=== PATIENT | female | born 1955 | race Caucasian/White ===

== ENCOUNTER → 2017-12-03 20:37 | Outpatient (CLI) | payer MEDICARE, BC, SELFPAY | PROVIDERS: PCP Internal Medicine Cardiovascular Disease; Visit Provider Internal Medicine Cardiovascular Disease | DX: G47.33 Obstructive sleep apnea (adult) (pediatric) (principal); G47.30 Sleep apnea, unspecified; R06.83 Snoring; I10 Essential (primary) hypertension | CPT/HCPCS: 95810 ==

== ENCOUNTER → 2018-12-14 15:04 | Outpatient (CLI) | payer MEDICARE, BC, SELFPAY ==
--- NOTE | 2018-12-14 15:08 | CA_ITS ---
PROCEDURE: 2-D M-mode and color Doppler study INDICATIONS FOR THE TEST: Chest pain COPD Heart Murmur Tobacco Smoking+ Palpitations+ Fatigue Syncope Edema Hypertension+Diabetes Mellitus Rheumatic Fever SOB LUNA Obesity Hyperlipidemia+ Family History HD Additional History cad, vtach PATIENT INFORMATION HEIGHT: 67 WEIGHT:151 GENDER: Female B/P:116/76 2-D/M-MODE INTERPRETATION: 2-D MEASUREMENTS OBSERVED VALUES IN CMS Right Ventricular Dimension (RVDd) 2.3 Interventricular Septum (Thickness)(IVsd) 1.2 Left Ventricular Internal Dimensions(LVIDd) 5.2 Left Ventricular Posterior Wall (Thickness)(LVPWd) 0.9 Aortic Root 2.2 Aortic Cusp Separation 1.9 Left Atrial Dimensions (LAD) 3.2 2D 1. Left atrium is mildly enlarged, left ventricle is normal size, mild concentric left ventricular hypertrophy, visually estimated ejection fraction 55% with no regional wall motion abnormality. 2. The right atrium and right ventricle are normal size and contractility. 3. The aortic valve is minimally thickened and calcified, leaflet continue to display mobility. 4. The mitral and tricuspid valve are grossly normal. 5. No significant pericardial effusion noted 6. The pulmonic valve is poorly visualized. DOPPLER INTERROGATION: Doppler interrogation of the aortic, mitral and tricuspid valvular presence of mild aortic, mild mitral and tricuspid regurgitation, tricuspid regurgitation jet velocity is inadequate for calculation of the right ventricular systolic pressure, grade 1 diastolic dysfunction seen with tissue Doppler evidence of raised left atrial pressure. CONCLUSION: 1. Mildly enlarged left atrium, normal left ventricular size, mild concentric left ventricular hypertrophy, visually estimated ejection fraction 55% with no regional wall motion abnormality, grade 1 diastolic dysfunction seen with tissue Doppler evidence of raised left atrial pressure. 2. Mild aortic, mild mitral and tricuspid regurgitation 3. No significant pericardial effusion noted.
== END ==
PROVIDERS: PCP Family Medicine; Visit Provider Internal Medicine Cardiovascular Disease
DX: I47.2 Ventricular tachycardia (principal)
CPT/HCPCS: 93306

== ENCOUNTER → 2019-01-12 09:06 | Outpatient (CLI) | payer MEDICARE, BC, SELFPAY ==
--- NOTE | 2019-01-12 09:18 | CT_ITS ---
CT angio LE INDICATION: Claudication, Leg pain while walking, ITS.REASON: claudication ORDERING PHYSICIAN: Dc Van MD PATIENT AGE: 63 years COMPARISON: None TECHNIQUE: Axial images are obtained following the bolus administration of 120 mL of Optiray 350 contrast. Sagittal and coronal reformatted images are reviewed as well. All CT scans at the facility use one or more dose reduction, viz: automated exposure control, ma/kV adjustment per patient size (including targeted exams where dose is matched to indication, i.e. head), or iterative reconstruction technique. FINDINGS: Angiographic findings: There is scattered calcific atheromatous plaque present within the abdominal aorta with no significant narrowing. No aortic aneurysm. The celiac and SMA have an unremarkable appearance. The TRICE also has an unremarkable appearance. There are 2 left renal arteries both of which are unremarkable. The right renal artery also has an unremarkable appearance bifurcating early There is mild narrowing of the proximal aspect of the both common iliac arteries of 20%. External iliac arteries have an unremarkable appearance. Right lower extremity runoff: Scattered atheromatous plaque within the common femoral and SFA with mild eccentric fibrocalcific plaque at the distal SFA with 25-30% stenosis.. Mild atheromatous plaque of the popliteal artery with 20% stenosis. There is three-vessel runoff to the ankle on the right. Left lower extremity runoff: Mild scattered atheromatous plaque. Mild stenosis at the common femoral artery of 10% at approximately 10:15 percent stenosis of the distal SFA. Scattered plaque noted within the runoff vessels in the calf. A small focal calcific plaque is present in the proximal aspect of the posterior tibial artery and may be causing some high-grade stenosis difficult to evaluate with this small vessel. Pertinent nonangiographic findings: There is a 13 mm left adrenal nodule is indeterminate showing some enhancement.. A cutaneous increased density is present along the abdomen anteriorly may be due to recent injection. Prior hysterectomy and cholecystectomy. Mild degenerative disc disease with minimal anterolisthesis of L4 on L5 There are loose intra-articular bodies in the popliteal region of the left knee with mild osteoarthritic changes of the left knee. IMPRESSION: 1. Scattered atheromatous changes as detailed above. No significant stenotic lesions evident of the aorta, iliac vessels, femoral arteries or superficial femoral artery or popliteal artery. 2. Small focal calcific plaque is present in the proximal left posterior tibial artery and may be causing high-grade stenosis difficult to evaluated due to the small size vessel. 3. Indeterminate 13 mm left adrenal nodule. Consider follow-up CT abdomen without contrast with adrenal protocol for further characterization 4. Osteoarthritis of the left knee with loose intra-articular bodies
[2019-01-12 09:33] LABS: Blood Urea Nitrogen 23 mg/dL (7-18); Creatinine,Serum 1.04 mg/dL (0.55-1.02); Estimated Glomerular Filt Rate 54 ml/min (>60); GFR (African American) 65 ML/MIN (>60)
== END ==
PROVIDERS: Visit Provider Internal Medicine Cardiovascular Disease
DX: I70.213 Atherosclerosis of native arteries of extremities with intermittent claudication, bilateral legs; E78.2 Mixed hyperlipidemia; I11.9 Hypertensive heart disease without heart failure; I25.10 Atherosclerotic heart disease of native coronary artery without angina pectoris; R00.2 Palpitations; R25.2 Cramp and spasm; F17.200 Nicotine dependence, unspecified, uncomplicated
CPT/HCPCS: 36415; 73701; 82565; 84520; Q9967

== ENCOUNTER → 2019-06-18 11:54 | Outpatient (CLI) | payer MEDICARE, BC, SELFPAY ==
[2019-06-18 13:13] LABS: Anion Gap 13.8 mEq/L (5-15); Blood Urea Nitrogen 21 mg/dL (7-18); Carbon Dioxide 27 mmol/L (21.0-32.0); Chloride 102 mmol/L (98-107); Creatinine,Serum 1.35 mg/dL (0.55-1.02); Estimated Glomerular Filt Rate 40 ml/min (>60); GFR (African American) 48 ML/MIN (>60); Glucose 92 mg/dL (74-106); Potassium 4.8 mmoL/L (3.5-5.1); Sodium 138 mmol/L (136-145)
== END ==
PROVIDERS: Visit Provider Internal Medicine Cardiovascular Disease
DX: R06.00 Dyspnea, unspecified; E78.5 Hyperlipidemia, unspecified; I11.9 Hypertensive heart disease without heart failure; I20.9 Angina pectoris, unspecified; F17.200 Nicotine dependence, unspecified, uncomplicated
CPT/HCPCS: 36415; 80048; 83880

== ENCOUNTER → 2019-06-24 06:12 | Outpatient (CLI) | payer MEDICARE, BC, SELFPAY ==
--- NOTE | 2019-06-24 | CA_ITS ---
APPROVED REPORT Exam: Pharmacologic Technologist: nicanor cortez, Ht: 5 ft 7 in Wt: 150 lbs BSA: 1.79 m2 HR: 64 bpm BP: 128/75 mmHg Rhythm: NSR,LOW VOLTAGE QRS Indications: CP Medical History Medical History: HTN, Hyperlipidemia, Diabetic ??? Noninsulin, Smoking Medications: Lisinopril,,,,, Lorazepam,,,,, Metoprolol,,,,, Asa,,,,, Metformin,,,,, Trazadone,,,,, Gabapentin,,,,, Prilosec,,,,, Lasix,,,,, Zoloft,,,,, Zanaflex,,,,, OxYCODONE,,,,, Allergies: NKA Cardiac Risk Factors: HTN, Hyperlipidemia, Diabetes (non-insulin), FHX of CAD, Smoking Stress Test Details Test: LEXISCAN HR Resting HR: 66 bpm Max Heart Rate (APMHR): 158 bpm Max HR Achieved: 91 bpm Target HR (85% APMHR): 134 bpm % of APMHR: 57 Recovery HR: 82 bpm BP Resting BP: 128.0/75.0 mmHg Max BP: 129.0/72.0 mmHg Recovery BP: 136.0/73.0 mmHg ECG Resting ECG: NSR LOW VOLTAGE QRS Clinical Exercise duration: 04:08 min Highest Stage Achieved: Exercise capacity: 1.0 METs Stress ECG Conclusion DURING INFUSION OF LEXISCAN PATIENT HAD MILD-MODERATE CHEST TIGHTNESS,SOA,NAUSEA AND MALAISE. NO ARRHYTHMIAS/ECTOPY. NS ST-T CHANGES. UNREMARKABLE LEXISCAN STRESS. MYOVIEW IMAGES REPORTED SEPARATELY Electronically signed by : Dc Van, 06/24/2019 12:15:20
--- NOTE | 2019-06-24 06:14 | CA_ITS ---
APPROVED REPORT EXAM: Comprehensive 2D, Doppler, and color-flow Echocardiogram Campus Monitor: Gaby Chilel RDCS Ht: 5 ft 7 in Wt: 150lbs BSA: 1.79 BP: 105/62 mmHg Indications: Chest Pain, Atrial Fibrillation, Diabetes, Palpitations, CAD, Hyperlipidemia, Hypertension/HDD 2D Dimensions LVOT 1.70 cm (M/F) 1.5-2.5 M-Mode Dimensions RVDd 2.60 cm (0.9-2.6) LA Diam 3.10 cm (1.9-4.0) LVDd 5.50 cm (3.5-5.7) Ao Diam 3.00 cm (2.0-3.7) LVDs 4.30 cm (3.5-5.7) AV Cusp 1.50 cm (1.5-2.6) IVSd 0.70 cm (0.6-1.1) PWd 0.80 cm (0.6-1.1) EF (Teich) 43.50% FS 21.80% EDV (Teich) 147.00 mL ESV (Teich) 83.10 mL LV Diastology E/A Ratio 0.9 MED E' 6.63 (< 7 cm/sec) E'/MED E' Ratio 10.70 (>14) LAT E' 6.53 (<10 cm/sec) E/LAT E' Ratio 10.90 (>14) Mitral Valve MV E Max Fuentes. 71.10 (40-130 cm/s) MV A Velocity 79.50 (40-130 cm/s) E/A Ratio 0.90 Left Ventricle Left atrium is mildly enlarged, left ventricle is normal size, mild concentric left ventricular hypertrophy, visually estimated ejection fraction 55% with no regional wall motion abnormality, grade 1 diastolic dysfunction seen without tissue Doppler evidence of raise left atrial pressure. Right Ventricle Right atrium and right ventricular normal size and contractility. Aortic Valve Aortic valve is minimally thickened and calcified leaflet continue to display good mobility, there is no aortic stenosis aortic insufficiency. Mitral Valve Mitral valve leaflets are minimally thickened, there is mild mitral regurgitation. Tricuspid Valve Tricuspid valve is grossly normal, there is mild tricuspid regurgitation, tricuspid regurgitation jet velocity is inadequate for calculation of the right ventricular systolic pressure. Pulmonic Valve Pulmonic valve is poorly visualized. Great Vessels Aortic root is normal size. Pericardium No significant pericardial effusion noted. Conclusion 1. Mild biatrial enlargement, normal left ventricular size, mild concentric left ventricular hypertrophy, visually estimated ejection fraction 55% with no regional wall motion abnormality, grade 1 diastolic dysfunction seen without tissue Doppler evidence of raise left atrial pressure. 2. Mildly enlarged right ventricle with normal contractility. 3. Mild mitral and tricuspid regurgitation. 4. No significant pericardial effusion noted. Electronically signed by : Dc Van, 06/25/2019 11:48:08
--- NOTE | 2019-06-24 06:37 | NM_ITS ---
APPROVED REPORT Exam: Nuclear Stress Test Indication: chest pain, fatigue Patient Location: Outpatient Stress Tech: Milena Carrero [place] Tech:Chhaya Castellano CRYSTAL RT(R)(N) Ht: 5 ft 7 in Wt: 150 lbs Bra Size: c HR: 64 bpm BP: 128/75 mmHg BSA: 1.79 m2 BMI: 23.4 History: chest pain, fatigue Procedure: Patient received a 0.4 mg of intravenous Lexiscan, resting heart rate 64 bpm, resting blood pressure 128/75 mmHg, with Lexiscan maximum heart rate achived was 85 bpm which is Less than 85 % of the maximum predicted heart rate and blood pressure was 100/55 mmHg. Electrocardiogram Resting electro cardiogram showed sinus rhythm, with Lexiscan there is less than 1.[address] segment depression noted from the baseline EKG. The EKG portion of the Lexiscan Myoview is nondiagnostic. Cardiac Stress and Resting SPECT Images: Cardiac Stress and Resting SPECT images were obtained using technetium 99m Myoview 31.0 mCi stress and 10.31 mCi at rest. Gated SPECT with analysis of segmental wall motion and calculation of the ejection fraction also done. Cardiac stress and resting SPECT images show uniform myocardial activity without segmental perfusion abnormality, computer derived ejection fraction is over 65% with no regional wall motion abnormality, right ventricle is normal size and contractility. Conclusion: 1. The EKG portion of the Lexiscan Myoview is nondiagnostic. 2. No scintigraphic evidence of reversible ischemia seen, computer derived ejection fraction is over 65% with no regional wall motion abnormality, right ventricle is normal size and contractility. 3. Normal Lexiscan Myoview study. Electronically signed by : Dc Van, 06/24/2019 12:14:06
--- NOTE | 2019-06-24 10:15 | HMH.ITSHM ---
Current Home Medications as stated by this patient Ashlie Choi or customer relations representative. [] asa prilosce zetia metoprolol zanaflex oxcodone lisinopril lorazepam lasix metformin
== END ==
PROVIDERS: PCP Family Medicine; Visit Provider Internal Medicine Cardiovascular Disease
DX: E78.5 Hyperlipidemia, unspecified (principal); I11.9 Hypertensive heart disease without heart failure; I20.9 Angina pectoris, unspecified; I47.2 Ventricular tachycardia; R06.00 Dyspnea, unspecified
CPT/HCPCS: 78452; 93017; 93306; A9502; J2785